=== PATIENT | female | born 1955 | race Caucasian/White ===

== ENCOUNTER → 2016-06-29 | Outpatient (CLI) | payer MEDICAID | END | disposition home or self-care (01) | LOC: MW.CHIM 06-21 11:40 | PROVIDERS: ATTEND Internal Medicine | DX: G47.30 Sleep apnea, unspecified (principal); I51.7 Cardiomegaly; R94.31 Abnormal electrocardiogram [ECG] [EKG]; I21.29 ST elevation (STEMI) myocardial infarction involving other sites | CPT/HCPCS: 93005 ==

== ENCOUNTER 2021-11-19 07:19 | Day surgery (SDC) | payer BC ==
[~2021-11-19 07:19] MED LIST: Propofol 200 MG/20 ML SDV ONE
[2021-11-19] MEDS ORDERED: fentaNYL 100 MCG/2 ML SDV ONE (07:20)
[2021-11-19] MEDS ORDERED: Lactated Ringers 1,000 ML IV SCH (07:30)
[2021-11-19] MEDS ORDERED: Propofol 200 MG/20 ML SDV ONE (09:25)
== END 2021-11-19 10:12 | disposition home or self-care (01) ==
LOC: MW.SDS 07:19
PROVIDERS: ATTEND Surgery
DX: K57.30 Diverticulosis of large intestine without perforation or abscess without bleeding (principal); F41.9 Anxiety disorder, unspecified; I48.92 Unspecified atrial flutter; E66.01 Morbid (severe) obesity due to excess calories; F32.A Depression, unspecified; E78.00 Pure hypercholesterolemia, unspecified; I10 Essential (primary) hypertension; I48.0 Paroxysmal atrial fibrillation; G47.33 Obstructive sleep apnea (adult) (pediatric); E55.9 Vitamin D deficiency, unspecified; Z79.899 Other long term (current) drug therapy; Z87.19 Personal history of other diseases of the digestive system; Z98.890 Other specified postprocedural states; Z68.41 Body mass index [BMI] 40.0-44.9, adult
CPT/HCPCS: 45380; J2704; J3010; J7120

== ENCOUNTER → 2025-01-24 | Day surgery (SDC) | payer MEDICARE, OTHER ==
[~2025-01-24] MED LIST changes: -Propofol 200 MG/20 ML SDV ONE; +Sodium Chloride 0.9% 10 ML Syringe FLUSH PRN; +Sodium Chloride 0.9% 2.5 ML Syringe FLUSH PRN; +propofoL 500 MG/50 ML 50 ML ONE
[2025-01-24] MEDS: Lactated Ringers 1,000 ML IV SCH (08:30)
== END | disposition home or self-care (01) ==
LOC: MW.SDS 08:08
PROVIDERS: ATTEND Surgery
DX: K57.30 Diverticulosis of large intestine without perforation or abscess without bleeding (principal); E66.813 Obesity, class 3; I10 Essential (primary) hypertension; E78.00 Pure hypercholesterolemia, unspecified; Z68.39 Body mass index [BMI] 39.0-39.9, adult; Z79.899 Other long term (current) drug therapy
CPT/HCPCS: 45380; 88305; J2704; J7120; 00811